=== PATIENT | male | born 2000 | race Caucasian/White ===

== ENCOUNTER 2019-10-28 10:14 | Outpatient (CLI) | payer MEDICAID, SELFPAY ==
--- NOTE | 2019-10-28 14:00 | DI.RAD_ITS ---
EXAM: XR HEEL RT OS CALCIS CLINICAL HISTORY: heel pain after contusion T14.8XXA INJURY TECHNIQUE: COMPARISON: No exams were available for comparison FINDINGS: Two views were obtained. There is no evidence of fracture or dislocation. IMPRESSION:
== END 2019-10-28 10:34 ==
PROVIDERS: PCP Pediatrics; Visit Provider Pediatrics
DX: M79.671 Pain in right foot (principal); S90.31XA Contusion of right foot, initial encounter
CPT/HCPCS: 73650